=== PATIENT | female | born 1970 | race Caucasian/White ===

== ENCOUNTER 2017-10-27 06:54 | Day surgery (SDC) | payer OTHER ==
[2017-10-27] MEDS ORDERED: SOD CHLORIDE 0.9% 1,000 ML IV (08:30)
[2017-10-27] MEDS: SOD CHLORIDE 0.9% 500 ML (09:55)
[2017-10-27] MEDS: CEFAZOLIN 1 GM/50 ML (PMX) 50 ML IVPB ×2 (09:55→10:30)
[2017-10-27] MEDS: HEPARIN 1000 UNITS/ML 10 ML INJ (10:30)
[2017-10-27] MEDS: LIDOCAINE 1%/EPI 30 ML INJ (11:20)
[2017-10-27] MEDS: MIDAZOLAM 1 MG/ML 2 ML INJ (11:30)
[2017-10-27] MEDS: FENTAnyl 50 MCG/ML VIAL (11:30)
[2017-10-27] MEDS: POLYMYXIN/BACITRACIN 1L IRRIG IRR (11:52)
[2017-10-27] MEDS ORDERED: HYDROCODONE/APAP (5/325) TAB PO (12:00)
== END 2017-10-27 14:31 | disposition home or self-care (01) ==
LOC: SDS 06:54
DX: C50.912 Malignant neoplasm of unspecified site of left female breast (principal); E78.5 Hyperlipidemia, unspecified
CPT/HCPCS: 36561; 76942; 93306

== ENCOUNTER 2018-04-20 08:11 | Day surgery (SDC) | payer OTHER ==
[2018-04-20] MEDS: SOD CHLORIDE 0.9% 1,000 ML IV (09:30)
[2018-04-20 12:55] LABS: ADD MAN DIFF? NO
[2018-04-20 12:56] LABS: BASOPHILS % 0.7 % (0.0-2.0); EOSINOPHILS # 0.2 10^3/ul (0.0-0.5); EOSINOPHILS % 4.9 % (0.0-7.0); HEMATOCRIT 41.3 % (37.0-47.0); HEMOGLOBIN 13.5 g/dl (12.0-16.0); LYMPHOCYTES # 2.2 10^3/ul (0.8-2.9); LYMPHOCYTES % 52.1 % (15.0-51.0); MEAN CORPUSCULAR HEMOGLOBIN 29.2 pg (29.0-33.0); MEAN CORPUSCULAR HGB CONC 32.7 g/dl (32.0-37.0); MEAN CORPUSCULAR VOLUME 89.2 fl (82.0-101.0); MEAN PLATELET VOLUME 11.1 fl (7.4-10.4); MONOCYTE # 0.3 10^3/ul (0.3-0.9); MONOCYTES % 7.5 % (0.0-11.0); NEUTROPHIL # 1.5 10^3/ul (1.6-7.5); NEUTROPHILS % 34.8 % (39.0-77.0); PLATELET COUNT 162 10^3/UL (140-415); RED BLOOD COUNT 4.63 10^6/ul (4.20-5.40); RED CELL DISTRIBUTION WIDTH 12.6 % (11.5-14.5)
[2018-04-20 12:56] LABS: WHITE BLOOD COUNT 4.3 10^3/ul (4.8-10.8)
[2018-04-20 13:00] LABS: HOLD TRANSMISSIONS 1
[2018-04-20 13:02] LABS: ALANINE AMINOTRANSFERASE 29 IU/L (13-69); ALBUMIN 4.6 g/dl (3.3-4.9); ALBUMIN/GLOBULIN RATIO 1.64; ALKALINE PHOSPHATASE 56 IU/L (42-121); ANION GAP 10 (5-13); ASPARTATE AMINO TRANSFERASE 23 IU/L (15-46); BILIRUBIN,INDIRECT 0.4 mg/dl (0-1.1); BILIRUBIN,TOTAL 0.4 mg/dl (0.2-1.3); BLOOD UREA NITROGEN 15 mg/dl (7-20); CARBON DIOXIDE 28 mmol/L (21-31); CHLORIDE 106 mmol/L (97-110); CREATININE 0.73 mg/dl (0.44-1.00); Estimated GFR > 60 mL/min (>60); GLUCOSE 93 mg/dl (70-220); POTASSIUM 4.4 mmol/L (3.5-5.1); SODIUM 144 mmol/L (135-144); TOTAL PROTEIN 7.4 g/dl (6.1-8.1)
[2018-04-20 13:15] LABS: PARTIAL THROMBOPLASTIN TIME 26.5 Sec (23.0-35.0)
[2018-04-20 13:35] LABS: INR 1.13; PROTIME 14.7 Sec (11.9-14.9); PT RATIO 1.1
[2018-04-20] MEDS: CEFAZOLIN 2 GM/50 ML (PMX) 50 ML IVPB (14:24)
[2018-04-20] MEDS ORDERED: MIDAZOLAM 1 MG/ML 2 ML INJ (14:25)
[2018-04-20] MEDS: ISOSULFAN BLUE 1% 5 ML INJ SC (14:53)
[2018-04-20] MEDS ORDERED: CEFAZOLIN 1 GM INJ (15:41)
[2018-04-20] MEDS ORDERED: PROPOFOL 20 ML (15:41)
[2018-04-20] MEDS ORDERED: LIDOCAINE 2% (SDV) 5 ML INJ (15:41)
[2018-04-20] MEDS ORDERED: ONDANSETRON 4 MG INJ (15:42)
[2018-04-20] MEDS ORDERED: HYDROmorphONE 1 MG/5 ML IV SYRINGE IV ×2 (16:00)
[2018-04-20] MEDS ORDERED: DIPHENHYDRAMINE 50 MG INJ IV (16:00)
[2018-04-20] MEDS ORDERED: MEPERIDINE 25 MG INJ IV (16:00)
[2018-04-20] MEDS ORDERED: HYDROCODONE/APAP (7.5/325) TAB PO (16:00)
[2018-04-20] MEDS ORDERED: ONDANSETRON 4 MG INJ IV (16:00)
[2018-04-20] MEDS ORDERED: LABETALOL HCL 20MG INJ IV (16:00)
[2018-04-20] MEDS ORDERED: hydrALAzine 20 MG INJ IV (16:00)
[2018-04-20] MEDS: METOCLOPRAMIDE 10 MG INJ IV (16:35)
[2018-04-20] MEDS: FENTAnyl 50 MCG/ML VIAL IV (16:35)
== END 2018-04-20 17:35 | disposition home or self-care (01) ==
LOC: SDS 08:11
DX: D05.12 Intraductal carcinoma in situ of left breast (principal)
CPT/HCPCS: 19301; 71045; 80053; 85025; 85610; 85730; 88307; 93005